=== PATIENT | female | born 1960 | race Caucasian/White ===

== ENCOUNTER 2019-03-07 14:42 | Emergency (ER) | payer MEDICAID ==
[~2019-03-07] VITALS: Ht 165.1 cm; Wt 75.3 kg
[2019-03-07 14:50] VITALS: BP 158/74
--- NOTE | 2019-03-07 14:55 | NUR ---
PT PLACED IN BED 9
--- NOTE | 2019-03-07 15:01 | NUR ---
BIBA FROM HOME C/O LOW BS. BS WAS 44 WHEN FIRST TAKEN. PER EMS, PT WAS FOUND UNCONSCIOUS ON FLOOR BY FAMILY. EMS GAVE 10% DEXTROSE IVF IN ROUTE. BS CURRENTLY 134. PT ALERT AND AWAKE, ORIENTED X4 NOW. NEURO INTACT. PUPILS PERRL. EQUAL ARM HIGH PRESSURE CLEANER. NO TRAUMA NOTED. PT URINATED ONESELF WHEN FOUND BY EMS. VS STABLE AT THIS TIME. PT AMBULATED FROM STRETCHER TO BED WITH STEADY GAIT. PMH- HTN, HIGH CHOLESTEROL, DM
--- NOTE | 2019-03-07 15:04 | NUR ---
PT REPORTS SHE HAS SCIATIC NERVE PAIN. PAIN 6/10 DOWN BACK
--- NOTE | 2019-03-07 15:10 | NUR ---
PT CLEANED FROM INCONTINENT EPISODE, RE-POSITIONED FOR COMFORT
--- NOTE | 2019-03-07 15:11 | NUR ---
IV NO LONGER FLUSHING, REMOVED
--- NOTE | 2019-03-07 15:27 | NUR ---
FAMILY AT BEDSIDE
--- NOTE | 2019-03-07 15:33 | NUR ---
DR QUINTEROS AT BEDSIDE
--- NOTE | 2019-03-07 15:41 | NUR ---
PT STATES LAST MEAL WAS LAST NIGHT, CALLED DIETARY FOR MEAL, DR QIUNTEROS NOTIFIED
--- NOTE | 2019-03-07 16:21 | NUR ---
PT EATING IN BED
[2019-03-07 17:10] VITALS: BP 163/70
--- NOTE | 2019-03-07 17:10 | NUR ---
ACCU CHECK 109
--- NOTE | 2019-03-07 17:10 | NUR ---
Patient discharged with v/s stable. Written and verbal after care instructions given and explained REGARDING HYPOGLYCEMIA. Patient verbalized understandinG. WHEELCHAIRED TO CAR BY JANNA HARVEY. All questions addressed prior to discharge. Advised to follow up with PMD. INSTRUCTED TO EAT MORE FREQUENTLY AND MONITOR BS.
== END 2019-03-07 17:10 | disposition home or self-care (01) ==
LOC: MED 14:42
DX: E11.649 Type 2 diabetes mellitus with hypoglycemia without coma (principal); I10 Essential (primary) hypertension; E78.00 Pure hypercholesterolemia, unspecified; R55 Syncope and collapse
CPT/HCPCS: 82948; 99283